=== PATIENT | female | born 1990 | race Caucasian/White ===

== ENCOUNTER → 2020-11-20 11:42 | Outpatient (CLI) | payer OTHER, SELFPAY ==
--- NOTE | 2020-11-20 11:46 | DI.RAD.S_ITS ---
TECHNIQUE: 3 views of the foot were acquired. COMPARISON: None. FINDINGS: Bones: No fractures or dislocations. No suspicious bony lesions. Soft tissues: No tibiotalar joint effusion. Achilles tendon appears normal. IMPRESSION: No acute bony abnormality. Dictated by: Derrick Olson M.D. on 11/20/2020 at 11:21 Approved by: Derrick Olson M.D. on 11/20/2020 at 11:23
== END ==
PROVIDERS: Referring Provider Physician Assistant; Visit Provider Physician Assistant
DX: S99.922A Unspecified injury of left foot, initial encounter (principal)
CPT/HCPCS: 73630